=== PATIENT | male | born 1990 | race Caucasian/White ===

== ENCOUNTER → 2024-06-13 | Outpatient (CLI) | payer OTHER ==
--- NOTE | 2024-06-13 16:29 | XR ---
EXAMINATION TYPE: XR knee complete LT DATE OF EXAM: 06/13/2024 4:00 PM CLINICAL INDICATION: Male, 33 years old with history of [id number] LT KNEE PAIN; [facility] COMPARISON: None. TECHNIQUE: XR knee complete LT; examined in Frontal, lateral and oblique projections. FINDINGS: No evidence of any acute osseous pathology, soft tissue swelling, or joint effusion is no rafa. IMPRESSION: No acute osseous pathology. [facility], , 06/13/2024 4:26 PM
== END | disposition home or self-care (01) ==
LOC: RADXRYALE 15:45
PROVIDERS: ATTEND Physician Assistant
DX: M25.562 Pain in left knee (principal)